=== PATIENT | male | born 2005 | race Caucasian/White ===

== ENCOUNTER 2024-06-01 14:28 | Emergency (ER) | payer OTHER ==
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
[2024-06-01] MEDS: SILVER SULFADIAZINE CREAM 25 GM TUBE TOP STA (16:25)
[2024-06-01 16:53] VITALS: BP 138/72; O2SAT 99
== END 2024-06-01 16:38 | disposition home or self-care (01) ==
LOC: ED 14:28
DX: T22.211A Burn of second degree of right forearm, initial encounter (principal); T31.0 Burns involving less than 10% of body surface; X10.2XXA Contact with fats and cooking oils, initial encounter; Y93.G3 Activity, cooking and baking
CPT/HCPCS: 16020; 99283; A9270